=== PATIENT | female | born 1965 | race Caucasian/White ===

== ENCOUNTER 2017-01-02 10:16 | Inpatient (IN) | payer OTHER ==
[~2017-01-02] VITALS: Ht 172.7 cm; Wt 88.0 kg
[2017-01-02] VITALS (12 sets, daily range): BP systolic 96–152; BP diastolic 58–98
[2017-01-02] MEDS ORDERED: Piperacillin/Tazobactam 3.375 GM in NS 110 ML IVPB ONE (11:00)
[2017-01-02 11:21] LABS: APPEARANCE,URINE SLIGHTLY CLOUDY; BASOPHILS % (AUTO) 0.6 % (0.0-2.0); EOSINOPHILS % (AUTO) 1.1 % (0.0-3.0); KETONES,URINE 1+ (NEGATIVE); LEUKOCYTE ESTERASE ,URINE 1+ (NEGATIVE); LYMPHOCYTES % (AUTO) 18.6 % (20.0-45.0); MEAN CORPUSCULAR HEMOGLOBIN 32.6 PG (27.0-31.0); MEAN CORPUSCULAR HGB CONC 34.1 G/DL (32.0-36.0); MEAN CORPUSCULAR VOLUME 96 FL (80-99); MEAN PLATELET VOLUME 8.1 FL (6.5-10.1); MONOCYTES % (AUTO) 5.6 % (1.0-10.0); NEUTROPHILS % (AUTO) 74.2 % (45.0-75.0); NITRITE,URINE NEGATIVE (NEGATIVE); PH,URINE 5 (4.5-8.0); PLATELET COUNT 230 K/UL (150-450); PROTEIN,URINE 1+ (NEGATIVE); RED BLOOD COUNT 4.56 M/UL (4.20-5.40); RED CELL DISTRIBUTION WIDTH 12.7 % (11.6-14.8); UROBILINOGEN,URINE NORMAL MG/DL (0.0-1.0); WHITE BLOOD COUNT 9.7 K/UL (4.8-10.8)
[2017-01-02 11:30] LABS: ALBUMIN/GLOBULIN RATIO 1.7 (1.0-2.7); CALCIUM 9.4 mg/dL (8.6-10.2); GLOMERULAR FILTRATION RATE 58.7 mL/min (>60); POTASSIUM 3.7 mEQ/L (3.4-4.9); TOTAL PROTEIN 6.7 g/dL (6.6-8.7)
[2017-01-02 11:33] LABS: BACTERIA,URINE FEW /HPF; MUCUS,URINE FEW /LPF (NONE/OCC); SQUAMOUS EPITHELIAL CELL,UR FEW /LPF (NONE/OCC)
[2017-01-02] MEDS ORDERED: Zosyn 3.375gm inj ONE (11:38)
[2017-01-02] MEDS ORDERED: Piperacillin/Tazobactam 3.375 GM in D5W 110 ML IVPB ONE (11:45)
[2017-01-02] MEDS ORDERED: Morphine Sulfate 4mg/ml Inj IVP PRN (12:15)
[2017-01-02] MEDS ORDERED: Morphine Sulfate 2mg/ml Inj IVP PRN (12:15)
--- NOTE | 2017-01-02 12:21 | History and Physical ---
History of Present Illness General Date patient seen: Jan 02, 2017 Time patient seen: 12:15 Reason for Hospitalization: r thumb abscess Present Illness HPI 51 y/o female with well controlled HTN, presents with a r thumb abscess, pain, swelling, and tenderness, unable to move the thumb without considerable discomfort. She was feeding her cat on Friday and she was bitten. She was started on augmentin but the pain has increased, now down to the metacarpal joint. No fevers/chills, saw a plastic surgeon who sent her to ER to be admitted and for IV abx. Allergies: Uncoded Allergies: SULFA (Allergy, Unknown, 01/02/17) Patient History History Provided By: Patient Healthcare decision maker Resuscitation status Advanced Directive on File Past Medical/Surgical History Past Medical/Surgical History: (1) HTN (hypertension) Family History Family History: Patient reports no known family medical history. Social History Social History: (1) No significant social history Review of Systems ROS Narrative CONSTITUTIONAL: No weight loss, fever, chills, weakness or fatigue. HEENT: Eyes: No visual loss, blurred vision, double vision or yellow sclerae. Ears, Nose, Throat: No hearing loss, sneezing, congestion, runny nose or sore throat. SKIN: No rash or itching. CARDIOVASCULAR: No chest pain, chest pressure or chest discomfort. No palpitations or edema. RESPIRATORY: No shortness of breath, cough or sputum. GASTROINTESTINAL: No anorexia, nausea, vomiting or diarrhea. No abdominal pain or blood. NEUROLOGICAL: No headache, dizziness, syncope, paralysis, ataxia, numbness or tingling in the extremities. No change in bowel or bladder control. MUSCULOSKELETAL: No muscle, back pain, joint pain or stiffness. + r thumb pain HEMATOLOGIC: No anemia, bleeding or bruising. LYMPHATICS: No enlarged nodes. No history of splenectomy. PSYCHIATRIC: No history of depression or anxiety. ENDOCRINOLOGIC: No reports of sweating, cold or heat intolerance. No polyuria or polydipsia. ALLERGIES: No history of asthma, hives, eczema or rhinitis. Physical Exam Physical Exam Narrative General: alert, cooperative, no distress, appears stated age Head: normocephalic, without obvious abnormality, atraumatic Eyes: conjunctivae/corneas clear. PERRL, EOM's intact Throat: lips, mucosa, and tongue normal. MMM Neck: supple, symmetrical, trachea midline, and no JVD Lungs: clear to auscultation bilaterally Heart: regular rate and rhythm, S1, S2 normal, no murmur, click, rub or gallop Abdomen: soft, non-tender, non-distended, bowel sounds normal; no masses or organomegaly Extremities: extremities normal, atraumatic, no cyanosis or edema. R thumb redness, induration with exquisite tenderness to palpation Pulses: 2+ and symmetric Skin: skin color, texture, turgor normal; no rashes or lesions Neurologic: grossly normal, no focal deficits Last 24 Hour Vital Signs Date Time Temp Pulse Resp B/P Pulse Ox O2 Delivery O2 Flow Rate FiO2 01/02/17 10:40 98.0 64 12 121/68 100 Room Air 01/02/17 10:34 97.9 71 16 101/67 98 Room Air Laboratory Tests Test 01/02/17 11:00 White Blood Count 9.7 K/UL (4.8-10.8) Red Blood Count 4.56 M/UL (4.20-5.40) Hemoglobin 14.9 G/DL (12.0-16.0) Hematocrit 43.7 % (37.0-47.0) Mean Corpuscular Volume 96 FL (80-99) Mean Corpuscular Hemoglobin 32.6 PG (27.0-31.0) H Mean Corpuscular Hemoglobin Concent 34.1 G/DL (32.0-36.0) Red Cell Distribution Width 12.7 % (11.6-14.8) Platelet Count 230 K/UL (150-450) Mean Platelet Volume 8.1 FL (6.5-10.1) Neutrophils (%) (Auto) 74.2 % (45.0-75.0) Lymphocytes (%) (Auto) 18.6 % (20.0-45.0) L Monocytes (%) (Auto) 5.6 % (1.0-10.0) Eosinophils (%) (Auto) 1.1 % (0.0-3.0) Basophils (%) (Auto) 0.6 % (0.0-2.0) Urine Color Yellow Urine Appearance Slightly cloudy Urine pH 5 (4.5-8.0) Urine Specific [place] 1.020 (1.005-1.035) Urine Protein 1+ (NEGATIVE) H Urine Glucose (UA) Negative (NEGATIVE) Urine Ketones 1+ (NEGATIVE) H Urine Occult Blood 2+ (NEGATIVE) H Urine Nitrite Negative (NEGATIVE) Urine Bilirubin Negative (NEGATIVE) Urine Urobilinogen Normal MG/DL (0.0-1.0) Urine Leukocyte Esterase 1+ (NEGATIVE) H Urine RBC 2-4 /HPF (0 - 2) H Urine WBC 2-4 /HPF (0 - 2) Urine Squamous Epithelial Cells Few /LPF (NONE/OCC) Urine Bacteria Few /HPF (NONE) Urine Mucus Few /LPF (NONE/OCC) H Sodium Level 139 mEQ/L (135-145) Potassium Level 3.7 mEQ/L (3.4-4.9) Chloride Level 100 mEQ/L (98-107) Carbon Dioxide Level 22 mEQ/L (20-30) Anion Gap 17 (5-15) H Blood Urea Nitrogen 16 mg/dL (7-23) Creatinine 1.0 mg/dL (0.5-0.9) H Estimat Glomerular Filtration Rate 58.7 mL/min (>60) Glucose Level 106 mg/dL (74-106) Calcium Level 9.4 mg/dL (8.6-10.2) Total Bilirubin 0.4 mg/dL (0.0-1.2) Aspartate Amino Transf (AST/SGOT) 11 U/L (5-40) Alanine Aminotransferase (ALT/SGPT) 10 U/L (3-33) Alkaline Phosphatase 44 U/L (35-104) Total Protein 6.7 g/dL (6.6-8.7) Albumin 4.3 g/dL (3.5-5.2) Globulin 2.4 g/dL Albumin/Globulin Ratio 1.7 (1.0-2.7) Height (Feet): 5 Height (Inches): 8.00 Weight (Pounds): 194 Medications Current Medications Medications (Trade) Dose Ordered Sig/Ruth Route PRN Reason Start Time Stop Time Status Last Admin Dose Admin Acetaminophen (Tylenol) 650 mg Q4H PRN ORAL Mild Pain (Pain Scale 1-3) 01/02/17 12:15 02/01/17 12:14 UNV Acetaminophen (Tylenol) 650 mg Q4H PRN ORAL fever 01/02/17 12:15 02/01/17 12:14 UNV Al Hydroxide/Mg Hydroxide (Mylanta II) 30 ml Q6H PRN ORAL dyspepsia 01/02/17 12:15 02/01/17 12:14 UNV Bisacodyl (Dulcolax) 10 mg HSPRN PRN RECTAL Constipation 01/02/17 12:15 02/01/17 12:14 UNV Dextrose (Dextrose 50%) STAT PRN IV Hypoglycemia 01/02/17 12:15 02/01/17 12:14 UNV Dextrose/Sodium Chloride (D5ns) 1,000 ml @ 50 mls/hr Q20H IV 01/02/17 13:11 02/01/17 13:10 UNV Diphenhydramine HCl (Benadryl) 25 mg Q6H PRN ORAL Itching/Pruritis 01/02/17 12:15 02/01/17 12:14 UNV Docusate Sodium (Colace) 100 mg EVERY 12 HOURS ORAL 01/02/17 21:00 02/01/17 20:59 UNV Lorazepam (Ativan 2mg/ml 1ml) 0.5 mg Q4H PRN IV For Anxiety 01/02/17 12:15 01/09/17 12:14 UNV Magnesium Hydroxide (Mom) 30 ml HSPRN PRN ORAL Constipation 01/02/17 12:15 02/01/17 12:14 UNV Morphine Sulfate (Morphine Sulfate) 2 mg Q4HR PRN IVP Moderate Pain (Pain Scale 4-6) 01/02/17 12:15 01/09/17 12:14 UNV Morphine Sulfate (Morphine Sulfate) 4 mg Q4HR PRN IVP Severe Pain (Pain Scale 7-10) 01/02/17 12:15 01/09/17 12:14 UNV Ondansetron HCl (Zofran) 4 mg Q6H PRN IVP Nausea & Vomiting 01/02/17 12:15 02/01/17 12:14 UNV Polyethylene Glycol (Miralax) 17 gm HSPRN PRN ORAL Constipation 01/02/17 12:15 02/01/17 12:14 UNV Temazepam (Restoril) 15 mg HSPRN PRN ORAL Insomnia 01/02/17 12:15 01/09/17 12:14 UNV Assessment/Plan Problem List: (1) Abscess of thumb, right Assessment & Plan: Admit to inpatient Start IV abx Pain control Supp care Plastic Surgery consult f/u cultures tetanus and appropriate vaccines per ER physician A total of 31 minutes of time was spent with care coordination and counseling, in addition to the face to face time for this specific encounter If patient is required to have surgery, based on the patient's medical history, and other available ancillary data, the patient is a LOW risk for an INTERMEDIATE risk procedure. Per the most recent ACC/AHA guidelines, the patient does not need any further cardiopulmonary testing prior to the procedure and there do not appear to be any clear medical contraindications to proceeding with the proposed procedure. ICD Codes: L02.511 - Cutaneous abscess of right hand SNOMED: 87751162 (2) HTN (hypertension) Assessment & Plan: Cont home BP meds, valsartan and metoprolol ICD Codes: I10 - Essential (primary) hypertension SNOMED: 23842622 DANIEL SMYTH Jan 02, 2017 12:21
[2017-01-02] MEDS ORDERED: LR 1000ml 1,000 ML IVLG SCH (12:40)
--- NOTE | 2017-01-02 12:40 | Anethesia Preoperative Eval ---
Anesthesia Pre-op PMH/ROS General Date of Evaluation: Jan 02, 2017 Time of Evaluation: 13:06 Anesthesiologist: Julio ASA Score: ASA 2 Mallampati Score Class I : Soft palate, uvula, fauces, pillars visible Class II: Soft palate, uvula, fauces visible Class III: Soft palate, base of uvula visible Class IV: Only hard plate visible Mallampati Classification: Class I Surgeon: Danielle Diagnosis: R Thumb Abscess Surgical Procedure: I and D R Thumb Anesthesia History: none Family History: no anesthesia problems Allergies: Uncoded Allergies: SULFA (Allergy, Unknown, 01/02/17) Medications: see eMAR Past Medical History Cardiovascular: Reports: HTN Musculoskeletal/Integumentary: Reports: other - R Thumb Abscess Anesthesia Pre-op Phys. Exam Physician Exam Last Vital Signs Date Time Temp Pulse Resp B/P Pulse Ox O2 Delivery O2 Flow Rate FiO2 01/02/17 10:40 98.0 64 12 121/68 100 Room Air Constitutional: NAD Neurologic: CN 2-12 intact Cardiovascular: RRR Respiratory: CTA Gastrointestinal: S/NT/ND Airway Exam Mallampati Score: Class II MO: full ROM: full Teeth: intact Anesthesia Pre-op A/P Labs Hematology Test 01/02/17 11:00 White Blood Count 9.7 K/UL (4.8-10.8) Red Blood Count 4.56 M/UL (4.20-5.40) Hemoglobin 14.9 G/DL (12.0-16.0) Hematocrit 43.7 % (37.0-47.0) Mean Corpuscular Volume 96 FL (80-99) Mean Corpuscular Hemoglobin 32.6 PG (27.0-31.0) H Mean Corpuscular Hemoglobin Concent 34.1 G/DL (32.0-36.0) Red Cell Distribution Width 12.7 % (11.6-14.8) Platelet Count 230 K/UL (150-450) Mean Platelet Volume 8.1 FL (6.5-10.1) Neutrophils (%) (Auto) 74.2 % (45.0-75.0) Lymphocytes (%) (Auto) 18.6 % (20.0-45.0) L Monocytes (%) (Auto) 5.6 % (1.0-10.0) Eosinophils (%) (Auto) 1.1 % (0.0-3.0) Basophils (%) (Auto) 0.6 % (0.0-2.0) Chemistry Test 01/02/17 11:00 Sodium Level 139 mEQ/L (135-145) Potassium Level 3.7 mEQ/L (3.4-4.9) Chloride Level 100 mEQ/L (98-107) Carbon Dioxide Level 22 mEQ/L (20-30) Anion Gap 17 (5-15) H Blood Urea Nitrogen 16 mg/dL (7-23) Creatinine 1.0 mg/dL (0.5-0.9) H Estimat Glomerular Filtration Rate 58.7 mL/min (>60) Glucose Level 106 mg/dL (74-106) Calcium Level 9.4 mg/dL (8.6-10.2) Total Bilirubin 0.4 mg/dL (0.0-1.2) Aspartate Amino Transf (AST/SGOT) 11 U/L (5-40) Alanine Aminotransferase (ALT/SGPT) 10 U/L (3-33) Alkaline Phosphatase 44 U/L (35-104) Total Protein 6.7 g/dL (6.6-8.7) Albumin 4.3 g/dL (3.5-5.2) Globulin 2.4 g/dL Albumin/Globulin Ratio 1.7 (1.0-2.7) Risk Assessment & Plan Assessment: ASA 2 Plan: GA Status Change Before Surgery: No Pre-Antibiotics Given Within 1 Hr of Incision: Yes Eric Dukes MD Jan 02, 2017 12:40
--- NOTE | 2017-01-02 12:42 | Immediate Post-Op Evaluation ---
Immediate Post-Op Evalulation Immediate Post-Op Evalulation Procedure: Iand D R Thumb Abscess Date of Evaluation: Jan 02, 2017 Time of Evaluation: 14:34 IV Fluids: 500 LR Blood Products: 0 Estimated Blood Loss: 10 Urinary Output: 0 Blood Pressure Systolic: 149 Blood Pressure Diastolic: 87 Pulse Rate: 88 Respiratory Rate: 16 O2 Sat by Pulse Oximetry: 100 Temperature (Fahrenheit): 97.7 Pain Score (1-10): 2 Nausea: No Vomiting: No Complications 0 Patient Status: awake, reacts, patent, extubated, none Hydration Status: adequate Given Within 1 Hr of Incision: Yes Eric Dukes MD Jan 02, 2017 12:42
[2017-01-02] MEDS ORDERED: Bacitracin 50000 Units Vial ONE (12:43)
[2017-01-02] MEDS ORDERED: Lidocaine 1% 10mg/ml/Epi 0.005mg/ml 30ml vial INJ ONE (12:44)
[2017-01-02] MEDS ORDERED: Meperidine 25mg/ml Inj IV PRN (12:45)
[2017-01-02] MEDS ORDERED: DiphenhydrAMINE 50mg/ml Inj IVP PRN (12:45)
[2017-01-02] MEDS ORDERED: Ketorolac 60mg Inj IV PRN (12:45)
[2017-01-02] MEDS ORDERED: Metoclopramide 10mg/2ml Inj IVP PRN (12:45)
[2017-01-02] MEDS ORDERED: Norco 7.5mg/325mg tab ORAL PRN (12:45)
[2017-01-02] MEDS ORDERED: Labetalol 5mg/ml 20ml vial IV PRN (12:45)
[2017-01-02] MEDS ORDERED: Oxycodone/Acetaminophen 5-325 ORAL PRN (12:45)
[2017-01-02] MEDS ORDERED: Atropine Inj 1mg/10ml Syr IV PRN (12:45)
[2017-01-02] MEDS ORDERED: Norco 5mg/325mg tab ORAL PRN ×2 (12:45→17:00)
[2017-01-02] MEDS ORDERED: Midazolam 2mg/2ml Inj IVP PRN (12:45)
[2017-01-02] MEDS ORDERED: LORazepam Inj 2mg/ml 1ml IV PRN ×2 (12:45→17:00)
[2017-01-02] MEDS ORDERED: fentaNYL 100 mcg/2 mL IV PRN (12:45)
[2017-01-02] MEDS ORDERED: Ketorolac 30mg Inj IV PRN (12:45)
[2017-01-02] MEDS ORDERED: NS Irrig 1000ml ONE (13:00)
[2017-01-02] MEDS ORDERED: Lidocaine 1% MPF 10mg/ml 5ml ONE (13:00)
[2017-01-02] MEDS ORDERED: LR 1000ml ONE (13:00)
[2017-01-02] MEDS ORDERED: Propofol 10mg/ml 20ml IV ONE (13:00)
[2017-01-02] MEDS ORDERED: Dexamethasone 4mg/ml vial ONE (13:00)
[2017-01-02] MEDS ORDERED: Alfentanil 2ml Inj ONE (13:00)
[2017-01-02] MEDS ORDERED: Sterile Water Irrig 1000ml IRRIG ONE (13:00)
[2017-01-02] MEDS ORDERED: Midazolam 2mg/2ml Inj ONE (13:00)
--- NOTE | 2017-01-02 13:06 | Pre-Procedure Note/Attestation ---
Pre-Procedure Note/Attestation Complete Prior to Procedure Planned Procedure: right Procedure Narrative: Right thumb exploration with incision and drainage and debridement Attestation I attest that I discussed the nature of the procedure; its benefits; risks and complications; and alternatives (and the risks and benefits of such alternatives ), prior to the procedure, with the patient (or the patient's legal hostess party sales representative). I attest that, if there was a reasonable possibility of needing a blood transfusion, the patient (or the patient's legal hostess party sales representative) was given the [facility] standardized written summary, pursuant to the Mayur Bree Blood Safety Act ([place] Health and Safety Code # 1645, as amended). I attest that I re-evaluated the patient just prior to the surgery and that there has been no change in the patient's H&P, except as documented below: REGINALDO HOLBROOK Jan 02, 2017 13:06
--- NOTE | 2017-01-02 13:08 | Operative Note - PDOC ---
Operative Note Operative Note Pre-op Diagnosis: R thumb flexor tenosynovitis Procedure: Right thumb exploration with incision drainage and debridement Post-op Diagnosis: Same Surgeon: Danielle Garage Supervisor: Abdifatah Specimen: none Condition: stable Estimated Blood Loss: minimal Drains: none REGINALDO HOLBROOK Jan 02, 2017 13:08
[2017-01-02] MEDS ORDERED: NS Irrig 1000ml IRRIG ONE (13:15)
[2017-01-02] MEDS ORDERED: Unasyn 3gm Inj IV SCH (14:00)
[2017-01-02] MEDS ORDERED: Lidocaine 1% Plain 30 ml INJ ONE (14:09)
--- NOTE | 2017-01-02 14:17 | Emergency Room Report ---
History of Present Illness General Chief Complaint: Animal Bite Source: Patient Present Illness HPI 51-year-old female presents to ED for evaluation. Patient states on Friday she was bitten by her cat on her right thumb. Patient was started on antibiotics but has not gotten better. Patient was sent here by Dr Santos for preop evaluation and is scheduled for surgery today. Patient states pain is throbbing, 5/10, radiating down the hand. no other aggravating or relieving factors. Denies fevers or chills. denies fluctuance. Denies discharge. Denies any other associated symptoms Allergies: Uncoded Allergies: SULFA (Allergy, Unknown, 01/02/17) Patient History Past Medical History: HTN Past Surgical History: none Pertinent Family History: none Social History: Denies: alcohol use, drug use, smoking Last Menstrual Period: 12/25/16 Now: No Immunizations: UTD Reviewed Nursing Documentation: PMH: Agreed, PSxH: Agreed Nursing Documentation-PMH Past Medical History: No History, Except For Hx Hypertension: Yes Review of Systems All Other Systems: negative except mentioned in HPI Physical Exam Vital Signs Date Time Temp Pulse Resp B/P Pulse Ox O2 Delivery O2 Flow Rate FiO2 01/02/17 10:34 97.9 71 16 101/67 98 Room Air Sp02 EP Interpretation: reviewed, normal General Appearance: no apparent distress, alert, GCS 15, non-toxic Head: normocephalic, atraumatic Eyes: bilateral eye PERRL, bilateral eye normal inspection ENT: hearing grossly normal, normal pharynx, no angioedema, normal voice Neck: full range of motion, supple/symm/no masses Respiratory: chest non-tender, lungs clear, normal breath sounds, speaking full sentences Cardiovascular #1: regular rate, rhythm, no edema Cardiovascular #2: 2+ carotid (R), 2+ carotid (L), 2+ radial (R), 2+ radial (L) , 2+ dorsalis pedis (R), 2+ dorsalis pedis (L) Gastrointestinal: normal bowel sounds, non tender, soft, non-distended, no guarding, no rebound Rectal: deferred Genitourinary: normal inspection, no CVA tenderness Musculoskeletal: back normal, gait/station normal, normal range of motion, tender - R thumb Neurologic: alert, oriented x3, responsive, motor strength/tone normal, sensory intact, speech normal Psychiatric: judgement/insight normal, memory normal, mood/affect normal, no suicidal/homicidal ideation Reflexes: 3+ bicep (R), 3+ bicep (L), 3+ tricep (R), 3+ tricep (L), 3+ knee (R) , 3+ knee (L) Skin: normal color, no rash, warm/dry, well hydrated, other - swelling/ erythema R thumb Lymphatic: no adenopathy Medical Decision Making Diagnostic Impression: Primary Impression: Abscess of thumb, right Additional Impression: Bite by animal ER Course Hospital Course 51-year-old female presents to ED with redness, swelling to R thumb s/p cat bite Differential diagnoses include: Cellulitis, abscess, rash. Clinical course Patient placed on stretcher. After initial history and physical I ordered labs , blood Cx, IVFs, CXR, EKG. labs reviewed -no leukocytosis, Hb/Hct stable, no electrolyte abnormalities. CXR unremarkable EKG - NSR antibiotics given. patient will go to OR. Case discussed with Dr Santos and he agreed to accept the patient to his service for further care and support Diagnosis - abcess of R thumb, bite by animal Patient admitted in serious condition Labs Test 01/02/17 11:00 White Blood Count 9.7 K/UL (4.8-10.8) Red Blood Count 4.56 M/UL (4.20-5.40) Hemoglobin 14.9 G/DL (12.0-16.0) Hematocrit 43.7 % (37.0-47.0) Mean Corpuscular Volume 96 FL (80-99) Mean Corpuscular Hemoglobin 32.6 PG (27.0-31.0) Mean Corpuscular Hemoglobin Concent 34.1 G/DL (32.0-36.0) Red Cell Distribution Width 12.7 % (11.6-14.8) Platelet Count 230 K/UL (150-450) Mean Platelet Volume 8.1 FL (6.5-10.1) Neutrophils (%) (Auto) 74.2 % (45.0-75.0) Lymphocytes (%) (Auto) 18.6 % (20.0-45.0) Monocytes (%) (Auto) 5.6 % (1.0-10.0) Eosinophils (%) (Auto) 1.1 % (0.0-3.0) Basophils (%) (Auto) 0.6 % (0.0-2.0) Urine Color Yellow Urine Appearance Slightly cloudy Urine pH 5 (4.5-8.0) Urine Specific [place] 1.020 (1.005-1.035) Urine Protein 1+ (NEGATIVE) Urine Glucose (UA) Negative (NEGATIVE) Urine Ketones 1+ (NEGATIVE) Urine Occult Blood 2+ (NEGATIVE) Urine Nitrite Negative (NEGATIVE) Urine Bilirubin Negative (NEGATIVE) Urine Urobilinogen Normal MG/DL (0.0-1.0) Urine Leukocyte Esterase 1+ (NEGATIVE) Urine RBC 2-4 /HPF (0 - 2) Urine WBC 2-4 /HPF (0 - 2) Urine Squamous Epithelial Cells Few /LPF (NONE/OCC) Urine Bacteria Few /HPF (NONE) Urine Mucus Few /LPF (NONE/OCC) Sodium Level 139 mEQ/L (135-145) Potassium Level 3.7 mEQ/L (3.4-4.9) Chloride Level 100 mEQ/L (98-107) Carbon Dioxide Level 22 mEQ/L (20-30) Anion Gap 17 (5-15) Blood Urea Nitrogen 16 mg/dL (7-23) Creatinine 1.0 mg/dL (0.5-0.9) Estimat Glomerular Filtration Rate 58.7 mL/min (>60) Glucose Level 106 mg/dL (74-106) Calcium Level 9.4 mg/dL (8.6-10.2) Total Bilirubin 0.4 mg/dL (0.0-1.2) Aspartate Amino Transf (AST/SGOT) 11 U/L (5-40) Alanine Aminotransferase (ALT/SGPT) 10 U/L (3-33) Alkaline Phosphatase 44 U/L (35-104) Total Protein 6.7 g/dL (6.6-8.7) Albumin 4.3 g/dL (3.5-5.2) Globulin 2.4 g/dL Albumin/Globulin Ratio 1.7 (1.0-2.7) EKG Diagnostic Results Rate: normal Rhythm: NSR ST Segments: no acute changes ASA given to the pt in ED: No Rhythm Strip Diag. Results EP Interpretation: yes Rhythm: NSR, no PVC's, no ectopy Chest X-Ray Diagnostic Results EP Interpretation: No Findings: no consolidation, no effusion, no pneumothorax, no acute cardiopulmonary disease Number of Views: 1 Last Vital Signs Date Time Temp Pulse Resp B/P Pulse Ox O2 Delivery O2 Flow Rate FiO2 01/02/17 10:40 98.0 64 12 121/68 100 Room Air Status: improved Disposition: ADMITTED INPATIENT Condition: Serious Referrals: NON PHYSICIAN (PCP) TORY QUINN M.D. Jan 02, 2017 14:17
--- NOTE | 2017-01-02 14:24 | Diagnostic Imaging Report ---
Indication: Cough Technique: One view of the chest Comparison: none Findings: Lungs and pleural spaces are clear. Heart size is normal. Impression: No acute process
[2017-01-02] MEDS: Hydromorphone 0.5mg/0.5ml inj IVP PRN ×2 (14:59→15:16)
[2017-01-02] MEDS ORDERED: Ketorolac 60mg Inj ONE (15:00)
[2017-01-02] MEDS ORDERED: Mylanta II UD 30ml ORAL PRN (17:00)
[2017-01-02] MEDS ORDERED: HYDROmorphone 1mg/ml Carpuject IVP PRN (17:00)
[2017-01-02] MEDS ORDERED: Norco 10mg/325mg tab ORAL PRN (17:00)
[2017-01-02] MEDS ORDERED: Milk of Magnesia 30ml Ud ORAL PRN (17:00)
[2017-01-02] MEDS ORDERED: Hydromorphone 0.5mg/0.5ml inj IVP PRN (17:00)
[2017-01-02] MEDS ORDERED: Unasyn 3gm/NS 110ml IVPB SCH ×2 (18:00)
[2017-01-02] MEDS: D5NS 1,000 ML IV SCH (18:01)
[2017-01-02] MEDS ORDERED: DIOVAN160 MG ORAL (18:44)
[2017-01-02] MEDS ORDERED: LEXAPRO10 MG ORAL (18:47)
[2017-01-02] MEDS ORDERED: ABILIFY2 MG ORAL (18:52)
[2017-01-02] MEDS ORDERED: KLONOPIN1 MG ORAL (18:52)
[2017-01-02] MEDS ORDERED: METOPROLOL SUCC25 MG ORAL (18:52)
[2017-01-02] MEDS ORDERED: TRAZODONE HCL150 MG ORAL (18:52)
[2017-01-02] MEDS ORDERED: TOPAMAX25 MG ORAL (18:52)
[2017-01-02] MEDS ORDERED: KLONOPIN0.5 MG ORAL (18:54)
--- NOTE | 2017-01-02 19:38 | Consultation ---
DATE OF CONSULTATION: 01/02/2017 CONSULTATION: ADMITTING PHYSICIAN: Willy Mancuso M.D. REASON FOR CONSULTATION: A right thumb infection secondary to animal bite. HISTORY OF PRESENT ILLNESS: This is a 51-year-old female, who presented to the emergency room with a cat bite sustained to her right thumb approximately four days ago. She was given antibiotics with minimal improvement. She presented to the emergency room with pain in her thumb, difficulty with active flexion, and pain on passive extension of her hand as well as streaking up her arm. She was admitted and started on IV antibiotics. Then, I saw the patient for her symptoms. PAST MEDICAL HISTORY: Significant for hypertension. PAST SURGICAL HISTORY: Significant for endometrial ablation. Please refer to the admitting doctor's notes for the remaining past surgical history. MEDICATIONS: Include antihypertensives. ALLERGIES: None. PHYSICAL EXAMINATION: GENERAL: The patient is alert and oriented x3. She is in mild distress secondary to her right hand pain. HEART: Regular rate and rhythm. ABDOMEN: Soft, nontender, and nondistended. EXTREMITIES: Examination of the right upper extremity reveals two puncture wounds on the lateral aspect of the right thumb with redness around them as well as pain over the volar surface of the digit in addition to pain in the wrist and streaking with lymphangitis tracking proximally into the arm. ASSESSMENT AND PLAN: This is a 51-year-old female with right thumb flexor tenosynovitis secondary to a cat bite. She will be taken to the operating room today for exploration and debridement with washout of the area with cultures to be taken to tailor antibiotics. She understands the risks and benefits of surgery and agrees to proceed. Paulo Santos M.D. DR: Leigh JOB#: [id number] CC: LORRAINE
[2017-01-02] MEDS ORDERED: clonazePAM 0.5mg tab ORAL PRN (19:45)
[2017-01-02] MEDS: TraZODone 100mg tab ORAL SCH (20:34)
[2017-01-02] MEDS: Topiramate 25mg tab ORAL SCH (20:34)
[2017-01-02] MEDS: Unasyn 3gm/NS 110ml IVPB SCH ×2 (20:34)
[2017-01-02] MEDS: Docusate 100mg cap ORAL SCH (20:34)
[2017-01-02] MEDS ORDERED: Miralax 17gm pkt ORAL PRN (21:00)
--- NOTE | 2017-01-02 21:48 | Operative Note - Dictated ---
DATE OF OPERATION: 01/01/2017 PREOPERATIVE DIAGNOSIS: Right thumb cat bite with flexor tenosynovitis. POSTOPERATIVE DIAGNOSIS: Right thumb cat bite with flexor tenosynovitis. PROCEDURES: 1. Exploration of right thumb for flexor tenosynovitis. 2. Incision and drainage of right thumb with washout. 3. Repaired A1 luke of the right thumb. 4. Adjacent tissue transfer closure of right thumb wound. SURGEON: Paulo Santos M.D. RAILWAY SWITCHMAN: Dominique Gardiner M.D. ANESTHESIA: General. COMPLICATIONS: None. EBL: Minimal. DISPOSITION: Stable to the recovery room. INDICATIONS FOR SURGERY: This is a 51-year-old female, who presented to the emergency room with a flexor tenosynovitis secondary to a cat bite. She had been on antibiotics for several days with no significant improvement and in fact, she was getting worse despite being on antibiotics. As such based on the clinical scenario, I felt that it will be appropriate to intervene early and perform an incision and drainage with washout and have the patient be on intravenous antibiotics for 24 to 48 hours as an inpatient pending the cultures. She was consented to undergo exploration of her right thumb with incision and drainage and debridement and she understood the risks and benefits of surgery and agreed to proceed. DETAILS OF THE OPERATION: The patient was brought to the operating room and laid supine on the operating table. The right upper extremity was prepped and draped in a sterile and usual fashion. Maira incisions were designed on the volar surface of the right thumb extending from the DIP joint all the way down to the metacarpal joint and metacarpophalangeal joint. Once this was done, a LEAD hand was used to secure the hand and a #15 blade was then used to make Maira incisions. Once this was done, a total of two flaps, a superior and inferior V-plasty flaps were elevated and they were tacked down using 3-0 silk sutures. Once this was done, the tissues by the entrance of the cat bite were debrided and cultures were sent for examination. We then came across the flexor tendon sheath over the flexor pollicis longus tendon. This was opened using a #15 blade and the area was copiously irrigated with an Angiocath and antibiotic solution. A total of 500 mL of irrigation were used both proximally as well as distally. We noted however that with the flexure opening alone, we were unable to get adequate proximal entry of the irrigation and so, a small opening was made in the A1 luke of the right thumb to allow for further proximal irrigation and once the A1 luke was opened, the area was able to be irrigated copiously where there an additional 200 mL performed for the irrigation. Following this, hemostasis was achieved. The A1 luke opening which was performed was then repaired using a 5-0 fast-absorbing gut suture. Following the tendon luke repair, we proceeded to perform an adjacent tissue transfer closure by reapproximating the Z-plasty flaps that had been elevated to close the wound. This was done using 3-0 Vicryl sutures at each point of the triangle and the remainder of the skin was closed loosely with interrupted 4-0 Prolene sutures. A digital block was then performed. The finger was then placed in an aluminum splint dressing and a bulky [place] dressing was applied to the thumb. The patient tolerated the procedure well. There was no complications. Paulo Santos M.D. DR: CLAYTON JOB#: [id number] CC: LORRAINE
[2017-01-03] VITALS: BP 102/62
[2017-01-03 04:00] VITALS: BP 100/61
[2017-01-03] MEDS: Unasyn 3gm/NS 110ml IVPB SCH ×6 (04:24→20:04)
[2017-01-03 06:45] LABS: ALBUMIN/GLOBULIN RATIO 1.9 (1.0-2.7); CALCIUM 8.7 mg/dL (8.6-10.2); CREATININE 1.1 mg/dL (0.5-0.9); GLOMERULAR FILTRATION RATE 52.6 mL/min (>60); POTASSIUM 4.3 mEQ/L (3.4-4.9); TOTAL PROTEIN 5.8 g/dL (6.6-8.7)
[2017-01-03 08:11] VITALS: BP 99/64
[2017-01-03] MEDS: Docusate 100mg cap ORAL SCH ×2 (08:38→20:03)
[2017-01-03] MEDS: ARIPiprazole 2mg tab ORAL SCH (08:38)
--- NOTE | 2017-01-03 10:18 | General Progress Note ---
Progress Note Progress Note Pt seen and examined. POD # 1 from exploration and drainage of R thumb for FTS. Doing well and pain less and controlled. Will continue Unasyn and f up on cultures. Will takedown dressings in AM and possible dc home tomorrow. MD SHERON Way AMIR Jan 03, 2017 10:18
--- NOTE | 2017-01-03 11:10 | General Progress Note ---
Assessment/Plan Problem List: (1) Abscess of thumb, right Assessment & Plan: s/p I+D R thumb Cont IV abx Pain control Supp care f/u cultures tetanus and appropriate vaccines per ER physician A total of 31 minutes of time was spent with care coordination and counseling, in addition to the face to face time for this specific encounter ICD Codes: L02.511 - Cutaneous abscess of right hand SNOMED: 68946946 (2) HTN (hypertension) Assessment & Plan: Cont home BP meds, valsartan and metoprolol ICD Codes: I10 - Essential (primary) hypertension SNOMED: 99940275 Subjective Date patient seen: Jan 03, 2017 Time patient seen: 11:08 ROS Limited/Unobtainable: No Allergies: Coded Allergies: SULFA (SULFONAMIDE ANTIBIOTICS) (Unverified Allergy, Unknown, 01/02/17) Uncoded Allergies: SULFA (Allergy, Unknown, 01/02/17) Subjective s/p I+D R thumb, POD#1, no periop or postop complications. Denied any chest pain or dyspnea Objective Last 24 Hour Vital Signs Date Time Temp Pulse Resp B/P Pulse Ox O2 Delivery O2 Flow Rate FiO2 01/03/17 08:11 98.2 84 20 99/64 96 Room Air 01/03/17 04:00 97.7 71 18 100/61 95 Room Air 01/03/17 00:00 97.7 82 18 102/62 95 Room Air 01/02/17 21:00 94 96/58 01/02/17 20:00 98.1 94 18 96/58 93 Room Air 01/02/17 16:20 97.2 76 18 114/78 94 Room Air 01/02/17 15:30 98.0 75 20 114/71 95 Room Air 01/02/17 15:18 97.7 01/02/17 15:18 97.7 01/02/17 15:16 78 20 126/79 95 Room Air 01/02/17 15:13 74 20 125/81 98 Room Air 01/02/17 15:02 78 20 122/77 98 Room Air 01/02/17 14:59 89 20 138/90 98 Room Air 01/02/17 14:45 79 20 135/85 98 Room Air 01/02/17 14:33 86 20 146/95 98 Room Air 01/02/17 14:28 91 20 152/98 98 Room Air 01/02/17 14:24 88 16 100 01/02/17 14:23 97.7 88 20 149/87 98 Simple Mask 8.0 Intake and Output 01/02/17 01/03/17 19:00 07:00 Intake Total 1550 ml 1520 ml Balance 1550 ml 1520 ml Intake Oral 860 ml IV Total 1550 ml 660 ml # Voids 1 2 Laboratory Tests 01/03/17 05:50: Sodium Level 138, Potassium Level 4.3, Chloride Level 101, Carbon Dioxide Level 21, Anion Gap 16H, Blood Urea Nitrogen 15, Creatinine 1.1H, Estimat Glomerular Filtration Rate 52.6, Glucose Level 161H, Calcium Level 8.7, Total Bilirubin 0.3 , Aspartate Amino Transf (AST/SGOT) 8, Alanine Aminotransferase (ALT/SGPT) 8, Alkaline Phosphatase 38, Total Protein 5.8L, Albumin 3.8, Globulin 2.0, Albumin/ Globulin Ratio 1.9 Height (Feet): 5 Height (Inches): 8.00 Weight (Pounds): 194 Objective General: alert, cooperative, no distress, appears stated age Head: normocephalic, without obvious abnormality, atraumatic Eyes: conjunctivae/corneas clear. PERRL, EOM's intact Throat: lips, mucosa, and tongue normal. MMM Neck: supple, symmetrical, trachea midline, and no JVD Lungs: clear to auscultation bilaterally Heart: regular rate and rhythm, S1, S2 normal, no murmur, click, rub or gallop Abdomen: soft, non-tender, non-distended, bowel sounds normal; no masses or organomegaly Extremities: extremities normal, atraumatic, no cyanosis or edema, R thumb/hand in geoff wrapping, appears c/d/i Pulses: 2+ and symmetric Skin: skin color, texture, turgor normal; no rashes or lesions Neurologic: grossly normal, no focal deficits DANIEL SMYTH Jan 03, 2017 11:10
--- NOTE | 2017-01-03 11:39 | 48 Hour Post Anesthesia Eval ---
Post Anesthesia Evaluation Procedure: Iand D R Thumb Abscess Date of Evaluation: Jan 03, 2017 Time of Evaluation: 11:38 Blood Pressure Systolic: 124 0: 52 Pulse Rate: 68 Respiratory Rate: 20 Temperature (Fahrenheit): 97.6 O2 Sat by Pulse Oximetry: 98 Airway: patent Nausea: No Vomiting: No Pain Intensity: 2 Hydration Status: adequate Cardiopulmonary Status: stable Mental Status/LOC: patient returned to baseline Follow-up Care/Observations: n/a Post-Anesthesia Complications: none Follow-up care needed: N/A NUSRAT MALIK M.D. Jan 03, 2017 11:39
[2017-01-03 12:17] VITALS: BP 110/64
[2017-01-03] MEDS ORDERED: Tubing IV Secondary IV ONE (14:44)
[2017-01-03] MEDS ORDERED: D5NS 1000ml IV ONE (14:44)
[2017-01-03] MEDS: D5NS 1,000 ML IV SCH (14:47)
[2017-01-03 16:00] VITALS: BP 122/74
[2017-01-03 20:00] VITALS: BP 97/66
[2017-01-03] MEDS: Topiramate 25mg tab ORAL SCH (20:03)
[2017-01-03] MEDS: TraZODone 100mg tab ORAL SCH (20:03)
[2017-01-04] VITALS: BP 96/68
--- NOTE | 2017-01-04 03:02 | Cardiology Report ---
APPROVED REPORT EKG Measurement Heart [id number] Normal sinus rhythm Normal ECG
[2017-01-04] MEDS: Unasyn 3gm/NS 110ml IVPB SCH ×4 (03:16→11:54)
[2017-01-04 04:00] VITALS: BP 137/72
[2017-01-04] MEDS: ARIPiprazole 2mg tab ORAL SCH (08:28)
[2017-01-04] MEDS: Docusate 100mg cap ORAL SCH ×2 (08:28→20:07)
[2017-01-04 08:33] VITALS: BP 125/80
[2017-01-04 12:03] VITALS: BP 116/70
--- NOTE | 2017-01-04 13:16 | General Progress Note ---
Assessment/Plan Problem List: (1) Abscess of thumb, right ICD Codes: L02.511 - Cutaneous abscess of right hand SNOMED: 28810970 (2) HTN (hypertension) ICD Codes: I10 - Essential (primary) hypertension SNOMED: 60807452 Status: stable Assessment/Plan s/p I+D R thumb Cont IV abx Pain control Supp care f/u cultures tetanus and appropriate vaccines per ER physician Extra time spent 32 min in care/coordination and counseling. D/w pt appropriate pain mgmt. D/w surgery dispo Subjective Date patient seen: Jan 04, 2017 Time patient seen: 13:16 ROS Limited/Unobtainable: No Constitutional: Reports: no symptoms HEENT: Reports: no symptoms Cardiovascular: Reports: no symptoms Respiratory: Reports: no symptoms Gastrointestinal/Abdominal: Reports: no symptoms Genitourinary: Reports: no symptoms Neurologic/Psychiatric: Reports: no symptoms Endocrine: Reports: no symptoms Hematologic/Lymphatic: Reports: no symptoms Allergies: Coded Allergies: SULFA (SULFONAMIDE ANTIBIOTICS) (Unverified Allergy, Unknown, 01/02/17) Uncoded Allergies: SULFA (Allergy, Unknown, 01/02/17) All Systems: reviewed and negative except above Subjective No acute o/n events C/o uncontrolled pain. [place] PO not helping Objective Last 24 Hour Vital Signs Date Time Temp Pulse Resp B/P Pulse Ox O2 Delivery O2 Flow Rate FiO2 01/04/17 12:53 97.9 01/04/17 12:03 97.9 79 19 116/70 95 Room Air 19 01/04/17 08:33 97.8 76 19 125/80 95 Room Air 19 01/04/17 08:28 70 125/80 01/04/17 04:00 97.2 70 18 137/72 99 Room Air 01/04/17 00:00 97.6 72 18 96/68 98 Room Air 01/03/17 20:00 97.7 74 17 97/66 95 Room Air 01/03/17 16:00 97.9 84 18 122/74 95 Room Air Intake and Output 01/03/17 01/04/17 19:00 07:00 Intake Total 1080 ml 1130 ml Balance 1080 ml 1130 ml Intake Oral 360 ml 520 ml IV Total 720 ml 610 ml # Voids 2 3 # Bowel Movements 1 1 Height (Feet): 5 Height (Inches): 8.00 Weight (Pounds): 194 Objective General: alert, cooperative, no distress, appears stated age Head: normocephalic, without obvious abnormality, atraumatic Eyes: conjunctivae/corneas clear. PERRL, EOM's intact Throat: lips, mucosa, and tongue normal. MMM Neck: supple, symmetrical, trachea midline, and no JVD Lungs: clear to auscultation bilaterally Heart: regular rate and rhythm, S1, S2 normal, no murmur, click, rub or gallop Abdomen: soft, non-tender, non-distended, bowel sounds normal; no masses or organomegaly Extremities: extremities normal, atraumatic, no cyanosis or edema R thumb in dressing c/d/i Pulses: 2+ and symmetric Skin: skin color, texture, turgor normal; no rashes or lesions Neurologic: grossly normal, no focal deficits Candelaria Layton M.D. Jan 04, 2017 13:16
[2017-01-04] MEDS: HYDROmorphone 2mg tab ORAL PRN ×2 (13:55→20:12)
[2017-01-04] MEDS ORDERED: Norco 10mg/325mg tab ORAL PRN (14:00)
[2017-01-04 16:00] VITALS: BP 121/73
[2017-01-04 19:48] VITALS: BP 120/73
[2017-01-04] MEDS: TraZODone 100mg tab ORAL SCH (20:07)
[2017-01-04] MEDS: Topiramate 25mg tab ORAL SCH (20:07)
[2017-01-04] MEDS: Ampicillin/Sulbactam Sod 3 GM in NS 55 ML IVPB SCH (20:07)
[2017-01-05] VITALS: BP 135/73
[2017-01-05] MEDS: Ampicillin/Sulbactam Sod 3 GM in NS 55 ML IVPB SCH (03:47)
[2017-01-05 04:00] VITALS: BP 131/87
[2017-01-05 08:34] VITALS: BP 151/82
[2017-01-05] MEDS: Docusate 100mg cap ORAL SCH (09:15)
[2017-01-05] MEDS: ARIPiprazole 2mg tab ORAL SCH (09:15)
[2017-01-05 11:55] VITALS: BP 150/81
--- NOTE | 2017-01-05 12:53 | Discharge Summary ---
Discharge Summary Hospital Course Date of Admission Jan 02, 2017 at 16:11 Date of Discharge 01/05/17 Admitting Diagnosis RIGHT THUMB ABSCESS Reason for Hospitalization: R thumb abscess HPI 51 y/o female with well controlled HTN, presents with a r thumb abscess, pain, swelling, and tenderness, unable to move the thumb without considerable discomfort. She was feeding her cat on Friday and she was bitten. She was started on augmentin but the pain has increased, now down to the metacarpal joint. No fevers/chills, saw a plastic surgeon who sent her to ER to be admitted and for IV abx. Consultations Plastic surgery Procedures On 01/02/17: 1. Exploration of right thumb for flexor tenosynovitis. 2. Incision and drainage of right thumb with washout. 3. Repaired A1 luke of the right thumb. 4. Adjacent tissue transfer closure of right thumb wound. Hospital Course Pt was admitted and started on IV antibiotics. Pt was seen by plastic surgery. Pt underwent exploration of right thumb for flexor tenosynovitis, incision and drainage of right thumb with washout, repaired A1 luke of the right thumb, and adjacent tissue transfer closure of right thumb wound on 01/02/17. Pt tolerated the procedure well. Pt with uncontrolled pain and pain mediations were optimized prior to discharge. Pt was discharged home on PO pain meds and antibiotics. Prior to d/c, pt was HD stable, tolerating PO, and ambulating w/o assistance. Discharge Medications New Medications: Amoxicillin/Potassium Clav 875-125* (Augmentin 875-125 Tablet*) 1 Each Tablet 1 TAB ORAL TWICE A DAY, #14 TAB Continued Medications: Aripiprazole* (Abilify*) 2 Mg Tablet 2 MG ORAL DAILY, TAB Clonazepam* (Klonopin*) 1 Mg Tablet 2 MG ORAL DAILY, #15 TAB 0 Refills Clonazepam* (Klonopin*) 0.5 Mg Tablet 0.5 MG ORAL Q6H PRN for For Anxiety, #15 TAB 0 Refills Escitalopram Oxalate* (Lexapro*) 10 Mg Tablet 10 MG ORAL DAILY, TAB Hydrocodone Bit/Acetaminophen 5-325* ([place] 5-325*) 1 Each Tablet 1 TAB ORAL Q4H to 6H PRN for For Pain, TAB 0 Refills Hydromorphone Hcl (Dilaudid) 1 Mg/1 Ml Liquid 2 MG PO every 4 to 6 hours for For Pain, ML Metoprolol Succinate* (Metoprolol Succinate*) 25 Mg Tab.er.24h 25 MG ORAL DAILY, TAB Topiramate* (Topamax*) 25 Mg Tablet 25 MG ORAL HS, TAB Trazodone* (Trazodone*) 150 Mg Tablet 100 MG ORAL BEDTIME, TAB Valsartan (Diovan) 160 Mg Tablet 160 MG ORAL DAILY, TAB Discharge Condition Upon Discharge: stable Discharge Disposition Patient was discharged to home Discharge Diagnoses: (1) Abscess of thumb, right Candelaria Layton M.D. Jan 05, 2017 12:53
[2017-01-05] MEDS ORDERED: NORCO 5-325 TA1 EACH ORAL (13:32)
[2017-01-05] MEDS ORDERED: DILAUDID1 MG/1 ML PO (13:33)
[2017-01-05] MEDS ORDERED: AUGMENTIN 875-1 EAC1 ORAL (22:37)
== END 2017-01-05 16:13 | disposition home or self-care (01) | DRG 575 ==
LOC: EMR 11:32 → EDBEDREQ 11:48 → EDBEDREQSVC 12:38 → SUR 13:09 → 3E 16:10 → SUR 16:10 → 3E 16:11 → SUR 01-03 05:55 → 3E 01-03 05:58 → UNDOADMIN 01-03 05:58 → 4E 01-04 19:09
PROC: 0HXFXZZ Transfer Right Hand Skin, External Approach (ICD-10-PCS; principal; 2017-01-02 13:30)
PROC: 0LQ70ZZ Repair Right Hand Tendon, Open Approach (ICD-10-PCS; principal; 2017-01-02 13:30)
PROC: 0X9J0ZZ Drainage of Right Hand, Open Approach (ICD-10-PCS; principal; 2017-01-02 13:30)
DX: L02.511 Cutaneous abscess of right hand (principal); I10 Essential (primary) hypertension; W55.01XS Bitten by cat, sequela; M65.841 Other synovitis and tenosynovitis, right hand; I89.1 Lymphangitis; Z88.2 Allergy status to sulfonamides
CPT/HCPCS: 36415; 71010; 80053; 81003; 85025; 87040; 87070; 87075; 87081; 87181; 87205; 93005; 94003; 94150; J2250; J2405; J3490